=== PATIENT | male | born 1985 | race Caucasian/White ===

== ENCOUNTER 2021-04-22 16:45 | Emergency (ER) | payer MEDICAID ==
[~2021-04-22] VITALS: Ht 165.1 cm; Wt 99.8 kg
--- NOTE | 2021-04-22 16:50 | NUR ---
Patient brought in by rescue ambulance 90 for overdose, narcan given enroute, patient is alert and oriented on arrival
[2021-04-22] MEDS ORDERED: ONDANSETRON 4 MG/2 ML VIAL IM ONE (17:00)
[2021-04-22] MEDS ORDERED: ONDANSETRON 4 MG/2 ML VIAL ONE (17:10)
--- NOTE | 2021-04-22 17:47 | NUR ---
PT RESTING QUIETLY. NAUSEA RELIEVED.
[2021-04-22] MEDS ORDERED: NALO4SPR NS (18:07)
[2021-04-22 18:21] VITALS: BP 116/63
== END 2021-04-22 18:22 | disposition home or self-care (01) ==
LOC: ER 16:47
DX: T40.411A Poisoning by fentanyl or fentanyl analogs, accidental (unintentional), initial encounter (principal); R09.2 Respiratory arrest; F11.10 Opioid abuse, uncomplicated; Y92.480 Sidewalk as the place of occurrence of the external cause; F15.10 Other stimulant abuse, uncomplicated; Z59.00 Homelessness unspecified; Z82.49 Family history of ischemic heart disease and other diseases of the circulatory system
CPT/HCPCS: 71045; 96372; 99283; J2405; A4663